=== PATIENT | female | born 1950 | race Caucasian/White ===

== ENCOUNTER 2016-07-27 14:59 | Emergency (ER) | payer MEDICARE ==
[2016-07-27 15:34] LABS: URINE MUCUS NONE SEEN (Up to 25%); URINE SQUAMOUS EPITHELIAL CELL NONE SEEN (<= 15/hpf)
[2016-07-27 15:41] LABS: URINE APPEARANCE CLOUDY; URINE COLOR YELLOW; URINE GLUCOSE NORMAL (NEGATIVE); URINE KETONE NEGATIVE (NEGATIVE); URINE LEUKOCYTE ESTERASE 75 WBC/uL (2+) (NEGATIVE); URINE NITRITE NEGATIVE (NEGATIVE); URINE PH 6.5 (5-7); URINE PROTEIN 100mg/dL (2+) (NEG - TRACE)
[2016-07-27 15:42] LABS: URINE BILIRUBIN NEGATIVE (NEGATIVE); URINE BLOOD 50 Ery/uL (2+) (NEGATIVE); URINE UROBILINOGEN 0.2mg/dL (Normal) (NEG-1mg/dL); URINE YEAST MANY (None Seen)
--- NOTE | 2016-07-27 16:25 | ER PHYSICIAN DOCUMENTATION ---
Physician Documentation [facility] Name:Prerna Gupta Age:65 yrs Sex:Female :1950 Arrival Date:07/27/2016 Time:14:59 Bed3 Private MD:Serina Campos ED KandieuniceJames Disposition: 07/27 16:00 F/U Call Note: I called prerna today. Her urinary symptoms have resolved and her cough tl1 is much improved. She did take the tussionex last night and says she really wasn't able to function well afterwwards because she was too "loopy", and she won't be taking that any more. 07/29 10:02 Chart complete. tl1 Disposition: 07/27/16 15:39 Discharged to Home/Self Care. Impression: Bladder Infection (UTI), Upper Respiratory Infection (URI). - Condition is Good. - Discharge Instructions: BLADDER INFECTION, Female (Adult), URI, Viral w/ Wheezing (Adult). - Prescriptions for albuterol sulfate 90 mcg/actuation Inhalation HFA aerosol inhaler - inhale 2 puff by INHALATION route every 4-6 hours; 1 Inhaler. Levaquin 500 mg Oral Tablet - take 1 tablet by ORAL route once daily for 7 days; 7 tablet. Prednisone 20 mg Oral Tablet - take 2 tablet by ORAL route once daily for 5 days; 10 tablet. Tussionex Pennkinetic ER 8- 10 mg/5 mL Oral Suspension, Sust. Release 12 hr - take 5 milliliter by ORAL route every 12 hours As needed; 120 milliliter. Fluconazole 200 mg Oral - take 2 tablet by ORAL route once daily; 14 tablet. - Medical Reconciliation form form. - Follow up: Serina Campos MD; When: 4- 6 days; Reason: Recheck today's complaints, Continuance of care. - Problem is new. - Symptoms are unchanged. HPI: 07/27 15:21 This 65 yrs old Female presents to ER via Private Vehicle with complaints of tl1 Cough for 10 days. 15:21 The patient or guardian reports cough. tl1 15:21 Onset: The symptom(s)/episode began/occurred gradually, 10 day(s) ago. Severity of tl1 symptoms: At their worst the symptoms were moderate, in the emergency department the symptoms are unchanged. Associated signs and symptoms: Pertinent positives: chest and abdominal soreness related to coughing. The patient has experienced similar episodes in the past, several times. She also c/o recurrent dysuria; she says she has a h/o recurrent UTIs and was recently treated with an unknown antibiotic for a UTI, though she was alittle unclear about the exact timing. Cough has become productive. No hematemesis. She has had some wheezing. Historical: - Allergies: Codeine; - Home Meds: 1. Coreg Oral 2. Acetaminophen Oral - PSHx: CHOLECYSTECTOMY; HYSTERECTOMY; - Tetanus: unknown. - Ebola Screening: : No symptoms or risks identified at this time. . - Immunization history: Flu Vaccine >1 year. - Social history: Smoking status: Patient states was never smoker of tobacco. Patient uses alcohol occasionally. ROS: 15:21 Respiratory: Positive for cough, shortness of breath, wheezing, Negative for tl1 hemoptysis, orthopnea, pleurisy. 15:21 : Positive for urinary symptoms, urinary frequency, burning with urination, foul smelling urine, Negative for vaginal discharge. 15:21 All other systems are negative. Exam: 15:21 Constitutional: This is a well developed, well nourished patient who is awake, alert, tl1 and in no acute distress. Head/Face: Normocephalic, atraumatic. ENT: Nares patent. No nasal discharge, no septal abnormalities noted. Tympanic membranes are normal and external auditory canals are clear. Oropharynx with no redness, swelling, or masses, exudates, or evidence of obstruction, uvula midline. Mucous membranes moist. 15:21 Cardiovascular: Regular rate and rhythm with a normal S1 and S2. No gallops, murmurs, tl1 or rubs. Normal PMI, no JVD. No pulse deficits. 15:21 Respiratory: Respirations: normal, Breath sounds: rales, are not appreciated, rhonchi, are not appreciated, wheezing, that is mild, is heard diffusely, bronchial sounds, are not appreciated, decreased breath sounds, stridor, is not appreciated. 15:21 Abdomen/GI: Inspection: abdomen appears normal, Palpation: soft, mild abdominal tenderness, in the abdomen diffusely. 15:21 Neuro: Exam negative for acute changes, Orientation: is normal. Vital Signs: 15:13 BP 118 / 61; Pulse 76; Resp 20; Temp 98.3; Pulse Ox 89% ; Weight 86.18 kg; Height 5 ft. ma 4 in. (162.56 cm); 15:13 Body Mass Index 32.61 (86.18 kg, 162.56 cm) ut MDM: 15:20 Patient medically screened. tl1 16:00 Differential Diagnosis: Bronchitis Upper Respiratory Infection Pneumonia Other tl1 Bacterial vs yeast cystitis, vs both. Data reviewed: vital signs, nurses notes, lab test result(s), urinalysis, and as a result, I will discharge patient. Counseling: I had a detailed discussion with the patient and/or guardian regarding: the historical points, exam findings, and any diagnostic results supporting the discharge/admit diagnosis, lab results, the need for outpatient follow up, to return to the emergency department if symptoms worsen or persist or if there are any questions or concerns that arise at home. Response to treatment: There is no appreciated change of the patient's symptoms at this time, and as a result, I will discharge patient. 07/27 15:43 Order name: UA W/ MICRO -CULTURE IF IND; Complete Time: 15:52 EDMS 07/27 15:48 Interpretation: Abnormal: URINE APPEARANCE CLOUDY; URINE LEUKOCYTE ESTERASE 75 WBC/uL tl1 (2+); URINE PROTEIN 100mg/dL (2+); URINE BLOOD 50 Reginaldo/uL (2+); URINE RBC 5-10/hpf; URINE WBC 10-25/hpf; URINE BACTERIA 20-50 ORGANISMS/hpf; URINE YEAST MANY. Dispensed Medications: No medications were administered Point of Care Testing: Urine Dip: 15:30 pH: 7.0; ; Specific [place]: 1.025; Ketones: Negative; Glucose: Negative; Protein: ma Positive (++); Leukocytes: Positive; Nitrite: Negative ; Blood: Moderate (++); Bilirubin: Negative ; Urobilinogen: Normal Signatures: Marjan Gutierrez, James Rievra RN, ma, MD MD tl1
--- NOTE | 2016-07-27 16:25 | ER NURSING DOCUMENTATION ---
Nurse's Notes [facility] Name:Prerna Gupta Age:65 yrs Sex:Female :1950 Arrival Date:07/27/2016 Time:14:59 Bed3 Private MD:Serina Campos Diagnosis:Bladder Infection (UTI);Upper Respiratory Infection (URI) Presentation: 07/27 15:09 Presenting complaint: Patient states: Pt describes cough for 10 days States chest and ma abd sore from same Also describes dysuria. Transition of care: Home. 15:09 Acuity: MARGI 3 ma 15:09 Method Of Arrival: Private Vehicle ma Triage Assessment: 15:12 General: Appears in no apparent distress, Behavior is cooperative. Pain: Complains of ma pain in back, chest and abdomen. GI: Abdomen is flat. Historical: - Allergies: Codeine; - Home Meds: 1. Coreg Oral 2. Acetaminophen Oral - PSHx: CHOLECYSTECTOMY; HYSTERECTOMY; - Tetanus: unknown. - Ebola Screening: : No symptoms or risks identified at this time. . - Immunization history: Flu Vaccine >1 year. - Social history: Smoking status: Patient states was never smoker of tobacco. Patient uses alcohol occasionally. Screenin:13 Infectious Disease Risk None. Abuse screen: Denies threats or abuse. Nutritional ma screening: No deficits noted. Assessment: 15:16 Respiratory: Airway is patent Respiratory effort is even, Reports cough that is ma productive. 15:16 EENT: Throat is clear. ma Vital Signs: 15:13 BP 118 / 61; Pulse 76; Resp 20; Temp 98.3; Pulse Ox 89% ; Weight 86.18 kg; Height 5 ft. ma 4 in. (162.56 cm); 15:13 Body Mass Index 32.61 (86.18 kg, 162.56 cm) ma ED Course: 15:00 Patient arrived in ED. arc 15:00 Serina Campos MD is Private Physician. arc 15:09 Marjan Gutierrez, NABEEL is Primary Nurse. ma 15:11 Triage completed. ma 15:13 Valuables Given to family. Patient has correct armband on for positive identification. ma Placed in gown. Bed in low position. Call light in reach. Side rails up X 1. 15:20 James Brewer MD is Attending Physician. tl1 15:38 Serina Campos MD is Referral Physician. tl1 Administered Medications: No medications were administered Point of Care Testing: Urine Dip: 15:30 pH: 7.0; ; Specific [place]: 1.025; Ketones: Negative; Glucose: Negative; Protein: ma Positive (++); Leukocytes: Positive; Nitrite: Negative ; Blood: Moderate (++); Bilirubin: Negative ; Urobilinogen: Normal Outcome: 15:39 Discharge ordered by MD. tineo 16:23 Discharged to home az 16:23 Condition: stable 16:23 Discharge instructions given to patient, family, Instructed on discharge instructions, follow up and referral plans. medication usage, Demonstrated understanding of instructions, medications, Prescriptions given X 5 RX given 16:24 Patient left the ED. az 07/28 09:17 Discharge F/U Call: Unable to reach: no answer 09:17 Discharge F/U Call: Unable to reach: no answer st Signatures: Meri Steel RN Marjan Griffin RN RN ma Leigh, Tom, MD MD tl1 Leonora Tirado, Reg Reg arc
== END 2016-07-27 16:25 | disposition home or self-care (01) ==
LOC: ER 14:59
DX: N39.0 Urinary tract infection, site not specified (principal); B96.20 Unspecified Escherichia coli [E. coli] as the cause of diseases classified elsewhere; J06.9 Acute upper respiratory infection, unspecified; Z79.899 Other long term (current) drug therapy
CPT/HCPCS: 81001; 87077; 87086; 87186; 99282; 99284